=== PATIENT | male | born 1950 | race Caucasian/White ===

== ENCOUNTER 2021-03-29 20:10 | Inpatient (IN) | payer MEDICARE ==
[~2021-03-29 20:10] MED LIST: TIROFIBAN 12.5MG-250ML NS 250 ML IV ONE
[2021-03-29] MEDS ORDERED: HEPARIN SODIUM 1,000 UN/ML (10ML VL) IV PRN (20:17)
[2021-03-29] MEDS ORDERED: HEPARIN SODIUM 1,000 UN/ML (10ML VL) IV ONE (20:17)
[2021-03-29] MEDS ORDERED: SODIUM CHLORIDE 0.9% 1,000 ML IV STA (20:17)
--- NOTE | 2021-03-29 20:20 | ED ---
General Adult HPI - General Stated complaint: Chest Pain Time Seen by Provider: 03/29/21 20:13 - History of Present Illness Initial comments: Dictation was produced using [employer] dictation software. please excuse any grammatical, word or spelling errors. Chief Complaint: 70-year-old male past medical history of hypertension presents to the emergency department for chest pain History of Present Illness: Patient is a 70-year-old male who presents to the emergency department for chest pain. His symptoms began 1 hour prior to arrival states it was a pressure. Is nonradiating but associated with diaphoresis. Patient denies any history of cardiac disease. Patient states that the pain does not heat to his back. States it's a pressure on his anterior chest. Patient denies any family history of cardiac disease. Patient has no history of smoking or tobacco use. He was given nitroglycerin by EMS. States that his pressure improved slightly. He still having some substernal chest pressure. Denies any paresthesias. The ROS documented in this emergency department record has been reviewed and confirmed by me. Those systems with pertinent positive or negative responses have been documented in the HPI. All other systems are other negative and/or noncontributory. PHYSICAL EXAM: General Impression: Alert and oriented x3, diaphoretic HEENT: Normocephalic atraumatic, extra-ocular movements intact, pupils equal and reactive to light bilaterally, mucous membranes moist. Cardiovascular: Heart regular rate and rhythm Chest: Able to complete full sentences, no retractions, no tachypnea Abdomen: abdomen soft, non-tender, non-distended, no organomegaly Musculoskeletal: Pulses present and equal in all extremities, no peripheral edema Motor: no focal deficits noted Neurological: CN II-XII grossly intact, no focal motor or sensory deficits noted Skin: Intact with no visualized rashes Psych: Normal affect and mood ED course: 70-year-old male presents to the emergency department for symptoms of acute coronary syndrome. EMS provided patient with nitroglycerin and aspirin. He was brought to emergency department as a priority 1. EKG performed at the bedside showed acute ST segment elevation MN with ST elevations in anterior precordial leads. There does not appear to be any reciprocal changes. Patient started on heparin. Vital signs upon arrival are within acceptable limits. Code STEMI was paged. Case discussed Dr. Avalos. Patient be admitted to [facility] who is [facility] call today. Disposition disposition to laboratory secretary for emergent cardiac catherization EKG interpretation: Ventricular rate 61, sinus rhythm, VA interval 252, QRS 70, QTC 408. No VA prolongation, no QTC prolongation, ST elevations in V2 through V5. Consistent with ST segment elevation MN - Related Data Home Medications Medication Instructions Recorded Confirmed Losartan/Hydrochlorothiazide 1 tab PO DAILY 03/29/21 03/29/21 [Losartan-Hctz 100-25 mg Tab] Allergies Allergy/AdvReac Type Severity Reaction Status Date / Time cephalexin [From Keflex] Allergy Rash/Hives Verified 03/29/21 20:29 Review of Systems ROS Statement: Those systems with pertinent positive or pertinent negative responses have been documented in the HPI. ROS Other: All systems not noted in ROS Statement are negative. Course Vital Signs 03/29/21 20:12 Temperature 98.2 F Pulse Rate 60 Respiratory 22 Rate Blood Pressure 118/69 O2 Sat by Pulse 94 L Oximetry Medical Decision Making - Lab Data Result diagrams: 03/29/21 20:23 03/29/21 20:23 Lab Results 03/29/21 03/29/21 03/29/21 Range/Units 20:23 20:23 20:23 WBC 9.4 (3.8-10.6) k/uL RBC 5.13 (4.30-5.90) m/uL Hgb 14.5 (13.0-17.5) gm/dL Hct 42.6 (39.0-53.0) % MCV 83.0 (80.0-100.0) fL MCH 28.2 (25.0-35.0) pg MCHC 34.0 (31.0-37.0) g/dL RDW 13.5 (11.5-15.5) % Plt Count 297 (150-450) k/uL MPV 6.6 Neutrophils % 64 % Lymphocytes % 21 % Monocytes % 10 % Eosinophils % 2 % Basophils % 1 % Neutrophils # 6.0 (1.3-7.7) k/uL Lymphocytes # 2.0 (1.0-4.8) k/uL Monocytes # 0.9 (0-1.0) k/uL Eosinophils # 0.2 (0-0.7) k/uL Basophils # 0.1 (0-0.2) k/uL PT 10.6 (9.0-12.0) sec INR 1.0 (<1.2) APTT 23.7 (22.0-30.0) sec Sodium 133 L (137-145) mmol/L Potassium 3.6 (3.5-5.1) mmol/L Chloride 99 (98-107) mmol/L Carbon Dioxide 27 (22-30) mmol/L Anion Gap 7 mmol/L BUN 20 (9-20) mg/dL Creatinine 1.20 (0.66-1.25) mg/dL Est GFR (CKD-EPI)AfAm 71 (>60 ml/min/1.73 sqM) Est GFR (CKD-EPI)NonAf 61 (>60 ml/min/1.73 sqM) Glucose 168 H (74-99) mg/dL Calcium 8.9 (8.4-10.2) mg/dL Magnesium 2.0 (1.6-2.3) mg/dL Total Bilirubin 0.6 (0.2-1.3) mg/dL AST 19 (17-59) U/L ALT 17 (4-49) U/L Alkaline Phosphatase 128 H (38-126) U/L Troponin I (0.000-0.034) ng/mL Total Protein 6.9 (6.3-8.2) g/dL Albumin 3.7 (3.5-5.0) g/dL 03/29/21 Range/Units 20:23 WBC (3.8-10.6) k/uL RBC (4.30-5.90) m/uL Hgb (13.0-17.5) gm/dL Hct (39.0-53.0) % MCV (80.0-100.0) fL MCH (25.0-35.0) pg MCHC (31.0-37.0) g/dL RDW (11.5-15.5) % Plt Count (150-450) k/uL MPV Neutrophils % % Lymphocytes % % Monocytes % % Eosinophils % % Basophils % % Neutrophils # (1.3-7.7) k/uL Lymphocytes # (1.0-4.8) k/uL Monocytes # (0-1.0) k/uL Eosinophils # (0-0.7) k/uL Basophils # (0-0.2) k/uL PT (9.0-12.0) sec INR (<1.2) APTT (22.0-30.0) sec Sodium (137-145) mmol/L Potassium (3.5-5.1) mmol/L Chloride (98-107) mmol/L Carbon Dioxide (22-30) mmol/L Anion Gap mmol/L BUN (9-20) mg/dL Creatinine (0.66-1.25) mg/dL Est GFR (CKD-EPI)AfAm (>60 ml/min/1.73 sqM) Est GFR (CKD-EPI)NonAf (>60 ml/min/1.73 sqM) Glucose (74-99) mg/dL Calcium (8.4-10.2) mg/dL Magnesium (1.6-2.3) mg/dL Total Bilirubin (0.2-1.3) mg/dL AST (17-59) U/L ALT (4-49) U/L Alkaline Phosphatase (38-126) U/L Troponin I <0.012 (0.000-0.034) ng/mL Total Protein (6.3-8.2) g/dL Albumin (3.5-5.0) g/dL Critical Care Time Critical Care Time: Yes Disposition Clinical Impression: STEMI (ST elevation myocardial infarction) Disposition: ADMITTED IP TO THIS [facility] Condition: Critical
[2021-03-29] MEDS ORDERED: NALOXONE 0.4 MG/ML 1 ML VIAL IV PRN (20:27)
[2021-03-29 20:34] LABS: Basophils # (A) 0.1 k/uL (0-0.2); Basophils % (A) 1 %; Eosinophils # (A) 0.2 k/uL (0-0.7); Eosinophils % (A) 2 %; HCT 42.6 % (39.0-53.0); HGB 14.5 gm/dL (13.0-17.5); Lymphocytes % (A) 21 %; MCH 28.2 pg (25.0-35.0); Mean Platelet Volume 6.6; Monocytes # (A) 0.9 k/uL (0-1.0); Monocytes % (A) 10 %; Neutrophils % (A) 64 %; Platelet Count 297 k/uL (150-450); RBC 5.13 m/uL (4.30-5.90); RDW 13.5 % (11.5-15.5); WBC 9.4 k/uL (3.8-10.6)
--- NOTE | 2021-03-29 20:34 | XR ---
EXAMINATION TYPE: XR chest 1V portable DATE OF EXAM: 03/29/2021 COMPARISON: NONE HISTORY: Wrist pain TECHNIQUE: Single view FINDINGS: Heart is enlarged. There is no gross heart failure. There is coarsening of the interstitial markings. Costophrenic angles are clear. IMPRESSION: Cardiomegaly. No obvious heart failure.
[2021-03-29 20:42] LABS: Partial Thromboplastin Time 23.7 sec (22.0-30.0); Prothrombin Time 10.6 sec (9.0-12.0)
[2021-03-29] MEDS ORDERED: LIDOCAINE 1% INJ 10MG/ML (20 ML MDV) ONE (20:45)
[2021-03-29] MEDS ORDERED: VERAPAMIL 2.5 MG/ML 2 ML AMP ONE (20:45)
[2021-03-29] MEDS ORDERED: HEPARIN SODIUM 1,000 UN/ML (10ML VL) ONE (20:48)
[2021-03-29 20:49] LABS: Albumin 3.7 g/dL (3.5-5.0); Calcium 8.9 mg/dL (8.4-10.2); Potassium 3.6 mmol/L (3.5-5.1); Total Bilirubin 0.6 mg/dL (0.2-1.3); Total Protein 6.9 g/dL (6.3-8.2)
[2021-03-29] MEDS ORDERED: ATORVASTATIN 80 MG TAB PO STA (20:50)
--- NOTE | 2021-03-29 21:00 | P.CRDCN ---
History of Present Illness History of present illness: This is Dr. Avalos dictating a consult on this patient The patient was interviewed and examined IMPRESSION / ASSESSMENT: Acute anterior wall VA with Q waves in the anterior precordial leads Ongoing chest discomfort that started about an hour for he arrived in the ER Hypertension Morbid obesity States that he is nondiabetic, no prior history of VA Admission glucose 168 PLAN: Patient already received 2 baby aspirins and IV heparin Start atorvastatin 80 mg Urgent coronary angiography and intervention Discussed with Dr. Wily ROWELL This is a 70-year-old male patient of Dr. Fred Mcmahon He was working on the house and he started experiencing discomfort in the middle to the right side of the chest. He took 2 baby aspirins of the pain persisted and therefore he came to the hospital NICU in here the EKG revealed ST elevation in the precordial leads with Q waves V1 through V3 Mildly prolonged TN interval He also complained of being very sweaty and a bit nauseous Denied dizziness loss of consciousness or any undue shortness of breath He takes an losartan and hydrochlorothiazide 100/25 mg by mouth daily ROS: No fever chills or rigors, no cough, phlegm or expectoration, no nausea, vomiting or diarrhea, no hematuria, dysuria, no musculoskeletal complaints, no strokes or seizures, no skin lesions. EXAMINATION: Afebrile 98.2F, pulse rate in the 60s normal respirations Blood pressure 118/69 mmHg Heart sounds are extremely soft He is morbid obesity BMI 60 Reduced breath sounds bilaterally but no rhonchi no crackles Soft abdomen Bilateral lower extremity swelling, brawny edema with redness collections No orthopnea REVIEW OF LABS, ECG & MEDICAL DATA White count 9.4, hemoglobin 14.5, platelet count 297,000 Sodium 133 potassium 3.6 BUN 20 creatinine 1.2 Glucose elevated 168 Past Medical History Past Surgical History: Tonsillectomy Smoking Status: Never smoker Past Alcohol Use History: None Reported Past Drug Use History: None Reported Medications and Allergies Home Medications Medication Instructions Recorded Confirmed Type Losartan/Hydrochlorothiazide 1 tab PO DAILY 03/29/21 03/29/21 History [Losartan-Hctz 100-25 mg Tab] Allergies Allergy/AdvReac Type Severity Reaction Status Date / Time cephalexin [From Keflex] Allergy Rash/Hives Verified 03/29/21 20:29 Physical Exam Vitals: Vital Signs Temp Pulse Resp BP Pulse Ox 03/29/21 20:12 98.2 F 60 22 118/69 94 L Intake and Output 03/29/21 03/29/21 03/29/21 06:59 14:59 22:59 Other: Weight 185.066 kg Results 03/29/21 20:23 03/29/21 20:23 Cardiac Enzymes 03/29/21 03/29/21 Range/Units 20:23 20:23 AST 19 (17-59) U/L Troponin I <0.012 (0.000-0.034) ng/mL Coagulation 03/29/21 Range/Units 20:23 PT 10.6 (9.0-12.0) sec APTT 23.7 (22.0-30.0) sec CBC 03/29/21 Range/Units 20:23 WBC 9.4 (3.8-10.6) k/uL RBC 5.13 (4.30-5.90) m/uL Hgb 14.5 (13.0-17.5) gm/dL Hct 42.6 (39.0-53.0) % Plt Count 297 (150-450) k/uL Comprehensive Metabolic Panel 03/29/21 Range/Units 20:23 Sodium 133 L (137-145) mmol/L Potassium 3.6 (3.5-5.1) mmol/L Chloride 99 (98-107) mmol/L Carbon Dioxide 27 (22-30) mmol/L BUN 20 (9-20) mg/dL Creatinine 1.20 (0.66-1.25) mg/dL Glucose 168 H (74-99) mg/dL Calcium 8.9 (8.4-10.2) mg/dL AST 19 (17-59) U/L ALT 17 (4-49) U/L Alkaline Phosphatase 128 H (38-126) U/L Total Protein 6.9 (6.3-8.2) g/dL Albumin 3.7 (3.5-5.0) g/dL Current Medications Generic Name Dose Route Start Last Admin Trade Name Freq PRN Reason Stop Dose Admin Heparin Sodium (Porcine) 0 unit 03/29/21 20:17 Heparin Sodium 1,000 Un/Ml (10ml Vl) IV Q6HR PRN Low PTT Protocol Sodium Chloride 1,000 mls @ 999 mls/hr 03/29/21 20:17 03/29/21 20:27 Saline 0.9% IV 03/29/21 21:17 999 mls/hr .Q1H1M STA Administration Sodium Chloride 1,000 mls @ 20 mls/hr 03/29/21 20:30 Saline 0.9% IV .Q24H ROSALVA Naloxone HCl 0.2 mg 03/29/21 20:27 Naloxone 0.4 Mg/Ml 1 Ml Vial IV Q2M PRN Opioid Reversal Intake and Output 03/29/21 03/29/21 03/29/21 06:59 14:59 22:59 Other: Weight 185.066 kg Patient Weight 03/30/21 06:59 Weight 185.066 kg 03/29/21 20:23 03/29/21 20:23
[2021-03-29] MEDS ORDERED: IV FLUID CONTINUATION 1,000 ML IV ONE (21:10)
[2021-03-29] MEDS ORDERED: LIDOCAINE 1% INJ 10MG/ML (20 ML MDV) SQ ONE (21:13)
[2021-03-29] MEDS ORDERED: MIDAZOLAM 2 MG/2 ML VIAL IV ONE (21:13)
[2021-03-29] MEDS ORDERED: VERAPAMIL SYRINGE (5 MG/10 ML) INTRAARTER ONE (21:14)
[2021-03-29] MEDS: HEPARIN SODIUM 1,000 UN/ML (10ML VL) IV ONE ×3 (21:24→22:02)
[2021-03-29] MEDS ORDERED: TIROFIBAN BOLUS 12.5MG/250 ML BAG IV ONE (21:25)
[2021-03-29] MEDS ORDERED: IOPAMIDOL-370 100ML BTL INJ ONE (21:46)
[2021-03-29] MEDS ORDERED: IOPAMIDOL-370 50ML BTL INJ ONE ×2 (21:48→22:03)
[2021-03-29] MEDS ORDERED: LIDOCAINE 2% SYG (PF) 100 MG/5 ML IV ONE (21:53)
[2021-03-29] MEDS ORDERED: CLOPIDOGREL 75 MG TAB ONE (21:54)
[2021-03-29] MEDS ORDERED: RX INFO: IV CONTRAST WAS GIVEN 1 EACH MISC MISCELLANE PRN (22:08)
[2021-03-29] MEDS ORDERED: ZOLPIDEM 5 MG TAB PO PRN (22:08)
[2021-03-29] MEDS ORDERED: NITROGLYCERIN SL TABS 0.4 MG TAB SUBLINGUAL PRN (22:08)
[2021-03-29] MEDS ORDERED: ATROPINE SULFATE 0.1 MG/ML 10ML SYRINGE IV PRN (22:08)
[2021-03-29] MEDS ORDERED: MAG HYDROX/AL HYDROX/SIMETH 30 ML CUP PO PRN (22:08)
[2021-03-29] MEDS ORDERED: CLOPIDOGREL 75 MG TAB PO ONE (22:09)
[2021-03-29 22:44] LABS: Glucose,Whole Blood 140 mg/dL (75-99)
[2021-03-29] MEDS: SODIUM CHLORIDE 0.9% 1,000 ML IV SCH ×2 (23:30→23:32)
[2021-03-30] MEDS ORDERED: TIROFIBAN 12.5MG-250ML NS 250 ML IV SCH (05:00)
[2021-03-30 07:04] LABS: Basophils % (A) 0 %; Eosinophils # (A) 0.1 k/uL (0-0.7); Eosinophils % (A) 1 %; HCT 40.6 % (39.0-53.0); HGB 13.8 gm/dL (13.0-17.5); Lymphocytes # (A) 0.9 k/uL (1.0-4.8); Lymphocytes % (A) 9 %; MCHC 34.1 g/dL (31.0-37.0); MCV 85.1 fL (80.0-100.0); Mean Platelet Volume 6.8; Monocytes # (A) 0.6 k/uL (0-1.0); Monocytes % (A) 6 %; Neutrophils # (A) 8.2 k/uL (1.3-7.7); Neutrophils % (A) 82 %; Platelet Count 272 k/uL (150-450); RBC 4.76 m/uL (4.30-5.90); RDW 14.1 % (11.5-15.5)
[2021-03-30 07:23] LABS: African American GFR (CKD) >90 (>60 ml/min/1.73 sqM); Anion Gap 9 mmol/L; Blood Urea Nitrogen 18 mg/dL (9-20); Calcium 8.4 mg/dL (8.4-10.2); Carbon Dioxide 20 mmol/L (22-30); Chloride 104 mmol/L (98-107); Glucose 121 mg/dL (74-99); Non-African American GFR(CKD) 79 (>60 ml/min/1.73 sqM); Sodium 133 mmol/L (137-145)
[2021-03-30 07:25] LABS: Potassium 4.2 mmol/L (3.5-5.1)
--- NOTE | 2021-03-30 07:46 | CC ---
CARDIAC CATHETERIZATION REPORT DATE OF SERVICE: 03/29/2021 PROCEDURE: 1. Left heart catheterization and coronary angiography. 2. PTCA and stenting of mid LAD with a drug-eluting stent in the setting of an acute ST-elevation OH with reperfusion accomplished within 81 minute. Moderate conscious sedation time was 45 minutes. Patient was administered Versed. Oxygen saturation, hemodynamics and EKG were monitored closely. PERFORMED BY: Dr. Fatou Julien. CLINICAL INFORMATION: Mr. Sundar Rutherford is a 70-year-old morbidly obese gentleman with history of hypertension, obstructive sleep apnea, who wears a CPAP. He came into the hospital with chest pain, was seen by Dr. Avalos in the emergency room. His clinical presentation was that of an acute OH with precordial ST elevation and persistent chest discomfort. He was advised prompt cardiac catheterization after due discussion regarding risks, benefits, and options. PROCEDURE NOTE: Under local anesthesia and strict aseptic precautions, a 6-Macedonian introducer was placed in the right radial artery. Using a JR4 diagnostic catheter, I performed selective coronary angiography of the right system. I checked the LV pressures with the same catheter but did not perform the LV-gram. I then switched over to a left 3.5 curved Heather catheter which was a guide catheter and with this I performed intervention of the mid LAD lesion. Following this, I took the sheath out and used an extra long TR band to secure hemostasis with the saturation the fingers of the right hand of about 96%. The patient tolerated procedure well without complication. [place] [address] units and ACT was 188. Additional 2000 units of heparin was given. He also received Aggrastat bolus and infusion. He received 600 mg of Plavix. He was sent to the ICU in a stable condition and results were discussed with the family members available. CARDIAC CATHETERIZATION FINDINGS: RIGHT CORONARY ARTERY: Dominant vessel, moderate calcification distally bifurcates into a large PDA and PLV, both of which supply a sizable amount of myocardium. Minor irregularities of 20-40 percent. No significant disease. LEFT MAIN CORONARY ARTERY: Short patent disease-free vessel that bifurcates into LAD and circumflex. LEFT ANTERIOR DESCENDING CORONARY ARTERY: This vessel gives off a diagonal and small septal branches and in the midportion there is a subtotal occlusion with heavy thrombus burden seen as a filling defect and without much antegrade flow. LAD occlusion with thrombus is the culprit vessel. LEFT POSTERIOR CIRCUMFLEX CORONARY ARTERY: Nondominant vessel that gives off 2 obtuse marginal branches and then runs in the AV groove. No significant disease. LV pressures were checked but LV gram was not performed. IMPRESSION: 1. Left ventricular end-diastolic pressure was about 20 mmHg. There was no gradient across aortic valve. 2. He has a right dominant system with no significant disease in the RCA other than 20- 30, minor irregularities. 3. Left main and circumflex, which is nondominant, are free of significant disease. 4. LAD has a 99% mid lesion with thrombus burden and filling defect without much antegrade flow. This is the culprit vessel. RECOMMENDATIONS: I recommended PCI of LAD and proceeded to perform this in the same setting. PCI PROCEDURE DETAILS: JL 3.5 guide catheter was used to cannulate the left coronary artery. A run-through wire was used to cross the lesion. A 3.0 caliber 12 mm NC Trek balloon was used to pre- dilate the lesion. I then deployed 18 mm long 4.0 caliber Xience stent at 14 atmospheres. Patient had chest pain and precordial ST elevation. Excellent angiographic result was achieved. Distally the vessel was occluded towards the apex and the ST-segment elevation still persisted, although there was modest relief of chest pain. I then advanced the same wire distally and gave a dilatation at the site of total occlusion with a 3.0 NC Trek balloon. Following this, the entire vessel opened up with AGUSTINA-3 flow. Patient had resolution of chest pain and EKG normalized. Excellent angiographic result was achieved. There was no evident complication. At the end of the procedure, I noted that in the distal 1/3 there was some diffuse disease and there was a focal area of about 40% to 50% narrowing, but I did not do any additional intervention other than balloon inflation of this site. Excellent angiographic result without complication was achieved and patient was sent to the room in stable condition. Reperfusion was accomplished in 81 minutes and patient tolerated procedure well. MMODL / IJN: [id number] /
[2021-03-30] MEDS: ASPIRIN 81 MG PO SCH (08:57)
[2021-03-30] MEDS: ATORVASTATIN 80 MG TAB PO SCH (08:57)
[2021-03-30] MEDS ORDERED: LOSARTAN 50 MG TAB PO SCH ×2 (09:00→21:00)
[2021-03-30] MEDS ORDERED: TICAGRELOR 90 MG TAB PO SCH (09:00)
[2021-03-30] MEDS ORDERED: METOPROLOL TARTRATE 25 MG TAB PO SCH (09:00)
[2021-03-30] MEDS ORDERED: CLOPIDOGREL 75 MG TAB PO SCH (09:00)
[2021-03-30 10:44] VITALS: BMI 60.5
--- NOTE | 2021-03-30 11:38 | ECHOF ---
Referral Reason:Anterior wall TX MEASUREMENTS -------- HEIGHT: 175.3 cm WEIGHT: 186.0 kg BP: IVSd: 1.3 cm (0.6 - 1.1) LVIDd: 4.9 cm (3.9 - 5.3) LVPWd: 1.4 cm (0.6 - 1.1) IVSs: 1.6 cm LVIDs: 3.5 cm LVPWs: 1.4 cm Ao Diam: 4.0 cm (2.0 - 3.7) AV Cusp: 2.0 cm (1.5 - 2.6) LA Diam: 4.7 cm (2.7 - 3.8) MV EXCURSION: 23.688 mm (> 18.000) MV EF SLOPE: 173 mm/s (70 - 150) EPSS: 0.9 cm FINDINGS -------- Sinus rhythm. Morbid Obesity This was a techncally difficult study with suboptimal views, , Definity utilized for enhancement of images. There is mild concentric left ventricular hypertrophy. Overall left ventricular systolic function i s moderately impaired with, an EF between 35 - 40 %. Apical anterior LV wall motion is hypokinetic. Apical lateral LV wall motion is hypokinetic. Apical inferior LV wall motion is hypokinetic. Apical septum LV wall motion is hypokinetic. The right ventricle is normal in size. The left atrial size is normal. The right atrial size is normal. xx ml of Lumason was utilized for enhancement of images. The aortic valve was not well visualized. The mitral valve was not well visualized. The tricuspid valve was not well visualized. Unable to estimate RVSP due to inadequate TR jet spect ral doppler profile. The pulmonic valve was not well visualized. The aortic root size is normal. Echo free space indicative of a pericardial fat pad. CONCLUSIONS -------- 1. Morbid Obesity 2. This was a techncally difficult study with suboptimal views, , Definity utilized for enhancement o f images. 3. There is mild concentric left ventricular hypertrophy. 4. Apical anterior LV wall motion is hypokinetic. 5. The right ventricle is normal in size. 6. The left atrial size is normal. 7. The right atrial size is normal. 8. xx ml of Lumason was utilized for enhancement of images. 9. The aortic valve was not well visualized. 10. The mitral valve was not well visualized. 11. The tricuspid valve was not well visualized. 12. Unable to estimate RVSP due to inadequate TR jet spectral doppler profile. 13. The pulmonic valve was not well visualized. 14. The aortic root size is normal. 15. Echo free space indicative of a pericardial fat pad. THERAPY TECHNICIAN: Tori Eddy RDCS
[2021-03-30] MEDS: SODIUM CHLORIDE 0.9% 1,000 ML IV SCH (11:52)
--- NOTE | 2021-03-30 12:47 | P.PN ---
Subjective Patient is doing well from a cardiac standpoint. He was admitted with chest discomfort with ST elevation anterior wall WI He underwent coronary angiography. The radial access site is healed well Breath sounds are clear no rhonchi no crackles Normal heart sounds normal S1 normal S2 but distant Lower extremity edema with some redness as yesterday No chest discomfort at all doing very well Blood pressure 155/86 and 141/82, pulse rate in the 60s to respirations, afebrile Sodium 133 potassium 4.2 BUN 18 and creatinine 0.97 Impression [address] An[address] ST elevation [place], with Q waves in the anterior precordial leads Hypertension Morbid obesity Ischemic cardio myopathy left ventricular ejection fraction 35% Cardiac catheterization/Coronary angiography revealed LV EDP of about 20 mmHg without a gradient across the aortic valve Right dominant system with mild RCA disease of 20-30% Left main and left circumflex do not have any significant disease 99% mid LAD stenosis with a high thrombus burden Status post stenting to the mid LAD There was a distal LAD lesion which was also angioplastied without stenting Aggrastat infusion was given Reduced LV systolic function of 35-40% with anterior wall hypokinesis Plan Dual antiplatelet platelet therapy with aspirin and Brilinta Atorvastatin Switched to carvedilol 3.125 mg twice daily Stay with losartan to 50 mg once daily for blood pressure control Stop thiazide diuretics Start spironolactone 25 mg daily Objective - Vital Signs Vital signs: Vital Signs Temp 97.4 F L 03/30/21 08:00 Pulse 64 03/30/21 12:00 Resp 16 03/30/21 12:00 BP 155/86 03/30/21 12:00 Pulse Ox 94 L 03/30/21 12:00 Intake & Output 03/29/21 03/30/21 03/30/21 18:59 06:59 18:59 Intake Total 953 925 Output Total 425 375 Balance 528 550 Weight 186 kg 186 kg Intake: IV 388 Intake, IV Titration 565 375 Amount Sodium Chloride 0.9% 1, 40 000 ml @ 20 mls/hr IV . Q24H ROSALVA Rx#:[id number] Sodium Chloride 0.9% 1, 525 375 000 ml @ 75 mls/hr IV . [id number] ROSALVA Rx#:[id number] Oral 550 Output: Urine 425 375 Other: Voiding Method Urinal Urinal # Voids 1 - Labs CBC & Chem 7: 03/30/21 05:33 11/27/21 05:33 Labs: Abnormal Lab Results - Last 24 Hours (Table) 03/29/21 03/29/21 03/29/21 Range/Units 20:23 22:42 22:44 Neutrophils # (1.3-7.7) k/uL Lymphocytes # (1.0-4.8) k/uL Sodium 133 L (137-145) mmol/L Carbon Dioxide (22-30) mmol/L Glucose 168 H (74-99) mg/dL POC Glucose (mg/dL) 140 H (75-99) mg/dL Alkaline Phosphatase 128 H (38-126) U/L Troponin I 0.386 H* (0.000-0.034) ng/mL 03/30/21 03/30/21 Range/Units 05:33 05:33 Neutrophils # 8.2 H (1.3-7.7) k/uL Lymphocytes # 0.9 L (1.0-4.8) k/uL Sodium 133 L (137-145) mmol/L Carbon Dioxide 20 L (22-30) mmol/L Glucose 121 H (74-99) mg/dL POC Glucose (mg/dL) (75-99) mg/dL Alkaline Phosphatase (38-126) U/L Troponin I (0.000-0.034) ng/mL
--- NOTE | 2021-03-30 12:58 | P.PN ---
Subjective Patient remains intubated Heart rates during atrial fibrillation are now ranging from 9210 She was on low-dose IV Cardizem drip which was discontinued this morning Yesterday we had increased the metoprolol dose to 115 g twice daily We will continue this dose for now Present may be used off and on in very low-dose infusion rates if needed when heart rates exceed 120 beats a minute This was discussed with the nurse Objective - Vital Signs Vital signs: Vital Signs Temp 97.4 F L 03/30/21 08:00 Pulse 64 03/30/21 12:00 Resp 16 03/30/21 12:00 BP 155/86 03/30/21 12:00 Pulse Ox 94 L 03/30/21 12:00 Intake & Output 03/29/21 03/30/21 03/30/21 18:59 06:59 18:59 Intake Total 953 925 Output Total 425 375 Balance 528 550 Weight 186 kg 186 kg Intake: IV 388 Intake, IV Titration 565 375 Amount Sodium Chloride 0.9% 1, 40 000 ml @ 20 mls/hr IV . Q24H ROSALVA Rx#:[id number] Sodium Chloride 0.9% 1, 525 375 000 ml @ 75 mls/hr IV . [id number] ROSALVA Rx#:[id number] Oral 550 Output: Urine 425 375 Other: Voiding Method Urinal Urinal # Voids 1 - Labs CBC & Chem 7: 03/30/21 05:33 03/30/21 05:33 Labs: Abnormal Lab Results - Last 24 Hours (Table) 03/29/21 03/29/21 03/29/21 Range/Units 20:23 22:42 22:44 Neutrophils # (1.3-7.7) k/uL Lymphocytes # (1.0-4.8) k/uL Sodium 133 L (137-145) mmol/L Carbon Dioxide (22-30) mmol/L Glucose 168 H (74-99) mg/dL POC Glucose (mg/dL) 140 H (75-99) mg/dL Alkaline Phosphatase 128 H (38-126) U/L Troponin I 0.386 H* (0.000-0.034) ng/mL 03/30/21 03/30/21 Range/Units 05:33 05:33 Neutrophils # 8.2 H (1.3-7.7) k/uL Lymphocytes # 0.9 L (1.0-4.8) k/uL Sodium 133 L (137-145) mmol/L Carbon Dioxide 20 L (22-30) mmol/L Glucose 121 H (74-99) mg/dL POC Glucose (mg/dL) (75-99) mg/dL Alkaline Phosphatase (38-126) U/L Troponin I (0.000-0.034) ng/mL
--- NOTE | 2021-03-30 13:02 | P.HPIM ---
History of Present Illness H&P Date: 03/30/21 70 years male patient of Dr. Mcmahon with past medical history of hypertension, morbid obesity comes in with acute onset of chest discomfort when he came inside his house. Patient states pain was central in location and nonradiating associated with excessive sweating and nausea. He called EMS within 15 minutes and was brought here. In the ER patient was noted to have diffuse ST elevation in the precordial lead with Q waves. STEMI alert was made and patient was taken to cardiac cath and stenting of the mid LAD with drug- eluting stent was done with an 81 minutes. Patient was noted to have an thrombus burden and filling defect in the LAD. Echocardiogram obtained this morning suggestive of mild concentric left ventricle hypertrophy and EF of 35- 0.40% apical anterior, lateral, inferior, septum left ventricle wall motion hypokinetic. Vitals are reviewed patient is afebrile pulse 64 respiratory rate 16 blood pressure 155/86 oxygenating 94% on room air. Labs are reviewed patient has a WBC count of 10 sodium 133 potassium 4.2 BUN 18 creatinine 0.97. Troponin negative second troponin 0.386. Twice a day, Plavix 75 mg by mouth daily, losartan 50 mg by mouth daily and spironolactone . Patient will be placed on aspirin and brillanta for anticoagulation. ROS Constitutional: Denies chills, Denies fever, Denies lethargy, Denies malaise, Denies poor appetite, Denies weakness, Denies weight loss Eyes: denies decreased vision, denies diplopia, denies discharge, denies pain Ears: deny: decreased hearing Ears, nose, mouth and throat: Denies dental pain, Denies headache, Denies nasal discharge, Denies nose pain Cardiovascular: Chest pain resolved, Denies decreased exercise tolerance, Denies edema, Denies high blood pressure, Denies irregular heart beat, Denies palpit ations, Denies paroxysmal nocturnal dyspnea, Denies rapid heart beat, Denies shortness of breath Respiratory: Denies congestion, Denies cough, Denies cough with sputum, Denies dyspnea, Denies home oxygen, Denies wheezing Gastrointestinal: Denies abdominal pain, Denies change in bowel habits, Denies coffee ground emesis, Denies early satiety, Denies excessive gas, Denies heartburn, Denies hematemesis, Denies hematochezia, Denies loss of appetite, Denies nausea, Denies vomiting Genitourinary: Denies dysuria, Denies flank pain, Denies kidney stones, Denies menorrhagia, Denies urgency, Denies urinary frequency Musculoskeletal: Denies gait dysfunction, Denies limitation of motion, Denies morning stiffness, Denies muscle cramps Integumentary: Denies rash, Denies wounds, Denies brittle nails, Denies change in hair/nails, Denies darkening of skin Neurological: Denies balance difficulties, Denies change in speech, Denies double vision, Denies gait dysfunction, Denies loss of vision, Denies motor disturbance, Denies numbness, Denies paralysis, Denies paresthesias, Denies seizures Psychiatric: Denies anxiety, Denies depression Endocrine: Denies excessive sweating, Denies excessive thirst, Denies high blood sugars, Denies palpitations Hematologic/Lymphatic: Denies easy bruising, Denies lymphadenopathy Social history Patient is Denies any smoking history or alcohol history, no illicit drug use Family history Father had coronary artery disease of prostate cancer at 68 Mother had coronary artery disease at 85 patient has 1 brother and 3 sisters no significant medical history known Patient has 1 son who is overweight no medical problems Physical exam - Constitutional General appearance: cooperative, no acute distress, obese - EENT Eyes: anicteric sclerae, PERRLA, normal appearance ENT: hearing grossly normal - Neck Neck: no lymphadenopathy, normal ROM, no other, no rigidity, no stridor, no thyromegaly - Respiratory Respiratory: bilateral: CTA, negative: diminished, dullness, rales, rhonchi - Cardiovascular Rhythm: regular Heart sounds: normal: S1, S2 Abnormal Heart Sounds: no systolic murmur, no diastolic murmur, no rub, no S3 Gallop, no S4 Gallop, no click, no other - Gastrointestinal General gastrointestinal: normal bowel sounds, soft - Integumentary Integumentary: no rash, site of entry without any thrombus formation right wrist cardiac cath - Neurologic Neurologic: CNII-XII intact - Musculoskeletal Musculoskeletal: gait normal, strength equal bilaterally - Psychiatric Psychiatric: A&O x's 3, appropriate affect Assessment and plan STEMI status post drug-eluting stenting of mid LAD on 03/29 - On aspirin and Brillanta 90 mg twice a day - Coreg 3.125 mg twice a day - Losartan 50 mg by mouth daily - Aldactone 25 mg by mouth daily - Lipitor 80 mg by mouth daily - Lipid panel ordered Hypertension - Hold hydrochlorothiazide/lisinopril -Patient initiated on Coreg, losartan, Aldactone - Low salt diet Ischemic cardiomyopathy - Continue Lipitor, beta matthew, Onel inhibitors, Aldactone - Input and output monitoring - Daily weights History of prostate cancer - Status post resection of prostate with radiation treatments -In remission DVT prophylaxis - Heparin every 12 GI prophylaxis - Pepcid 20 mg by mouth DD CODE STATUS full code Disposition patient needed to use 1-2 inpatient nights for stabilization More than 30 minutes was spent in patient's assessment and plan and counseling the patient Past Medical History Additional Past Medical History / Comment(s): Tonsilectomy, Obesity, Prostate sx., Carpal Tunnel sx. B/L History of Any Multi-Drug Resistant Organisms: None Reported Past Surgical History: Prostate Surgery, Tonsillectomy Past Anesthesia/Blood Transfusion Reactions: No Reported Reaction Past Psychological History: No Psychological Hx Reported Smoking Status: Never smoker Past Alcohol Use History: None Reported Past Drug Use History: None Reported Medications and Allergies Home Medications Medication Instructions Recorded Confirmed Type Losartan/Hydrochlorothiazide 1 tab PO DAILY 03/29/21 03/29/21 History [Losartan-Hctz 100-25 mg Tab] Allergies Allergy/AdvReac Type Severity Reaction Status Date / Time cephalexin [From Keflex] Allergy Rash/Hives Verified 03/29/21 20:29 Physical Exam Vitals: Vital Signs Temp Pulse Resp BP BP Pulse Ox 03/30/21 09:00 70 12 145/76 92 L 03/30/21 08:00 97.4 F L 65 12 145/77 93 L 03/30/21 07:00 76 21 113/70 92 L 03/30/21 06:00 66 11 L 136/69 93 L 03/30/21 05:00 67 8 L 131/71 93 L 03/30/21 04:00 97.6 F 64 12 122/68 94 L 03/30/21 03:00 67 14 133/98 95 03/30/21 02:30 71 18 120/72 94 L 03/30/21 02:00 62 11 L 118/75 94 L 03/30/21 01:30 64 10 L 119/73 94 L 03/30/21 01:00 61 7 L 123/71 95 11/27/21 00:30 60 13 129/73 94 L 03/30/21 00:00 98.3 F 63 8 L 125/70 94 L 03/29/21 23:30 64 13 123/76 95 03/29/21 23:10 70 8 L 123/76 94 L 03/29/21 23:00 67 9 L 119/70 95 03/29/21 22:53 18 123/76 96 03/29/21 22:50 97.5 F L 64 13 119/70 96 03/29/21 22:38 98.2 F 16 119/70 96 03/29/21 20:12 98.2 F 60 22 118/69 94 L Intake and Output 03/29/21 03/30/21 03/30/21 22:59 06:59 14:59 Intake Total 408 545 625 Output Total 0 425 125 Balance 408 120 500 Intake: IV 388 Intake, IV Titration 20 545 225 Amount Sodium Chloride 0.9% 1, 20 20 000 ml @ 20 mls/hr IV . Q24H [facility] Rx#:[id number] Sodium Chloride 0.9% 1, 525 225 000 ml @ 75 mls/hr IV . [id number] [facility] Rx#:[id number] Oral 400 Output: Urine 0 425 125 Other: Voiding Method Urinal # Voids 1 Weight 186 kg 186 kg Results CBC & Chem 7: 03/30/21 05:33 03/30/21 05:33 Labs: Abnormal Lab Results - Last 24 Hours (Table) 03/29/21 03/29/21 03/29/21 Range/Units 20:23 22:42 22:44 Neutrophils # (1.3-7.7) k/uL Lymphocytes # (1.0-4.8) k/uL Sodium 133 L (137-145) mmol/L Carbon Dioxide (22-30) mmol/L Glucose 168 H (74-99) mg/dL POC Glucose (mg/dL) 140 H (75-99) mg/dL Alkaline Phosphatase 128 H (38-126) U/L Troponin I 0.386 H* (0.000-0.034) ng/mL 03/30/21 03/30/21 Range/Units 05:33 05:33 Neutrophils # 8.2 H (1.3-7.7) k/uL Lymphocytes # 0.9 L (1.0-4.8) k/uL Sodium 133 L (137-145) mmol/L Carbon Dioxide 20 L (22-30) mmol/L Glucose 121 H (74-99) mg/dL POC Glucose (mg/dL) (75-99) mg/dL Alkaline Phosphatase (38-126) U/L Troponin I (0.000-0.034) ng/mL Thrombosis Risk Factor Assmnt - Choose All That Apply Each Factor Represents 1 point: Acute [place], Obesity (BMI >25) Each Risk Factor Represents 2 Points: Age 61-74 years Other congenital or acquired thrombophilia - If yes, enter type in comment: No Thrombosis Risk Factor Assessment Total Risk Factor Score: 4 Thrombosis Risk Factor Assessment Level: Moderate Risk
[2021-03-30] MEDS: carvediloL 3.125 MG TAB PO SCH (17:51)
[2021-03-31] MEDS: carvediloL 3.125 MG TAB PO SCH ×2 (06:17→16:44)
[2021-03-31] MEDS: SODIUM CHLORIDE 0.9% 1,000 ML IV SCH (06:17)
[2021-03-31] MEDS ORDERED: SPIRONOLACTONE 25 MG TAB PO SCH (09:00)
[2021-03-31] MEDS: ASPIRIN 81 MG PO SCH (10:12)
[2021-03-31] MEDS: ATORVASTATIN 80 MG TAB PO SCH (10:12)
[2021-03-31] MEDS: CLOPIDOGREL 75 MG TAB PO SCH (10:12)
[2021-03-31] MEDS: SPIRONOLACTONE 25 MG TAB PO SCH (10:12)
[2021-03-31 10:45] LABS: Calcium 8.3 mg/dL (8.4-10.2)
--- NOTE | 2021-03-31 11:04 | P.PN ---
Subjective Patient is resting comfortably in bed. No chest discomfort dizziness lightheadedness no palpitations On examination afebrile 98F Pulse rate in the 60s blood pressure 124/82 mmHg and 130 506 9 mmHg Normal heart sounds Breath sounds are reduced Bilaterally but no crackles crackles Bilateral mild lower extremity edema Labs reviewed Sodium 132, potassium 4.0 BUN 18 and creatinine 1.0 Lipid panel is still pending 48 hours after admission Impression Anterior wall [place] status post stenting Acute ST elevation [place] as a presentation. Peak troponin of 17.4 Ischemic cardiopathy ejection fraction 35-40% post [place] Hemodynamically stable Very occasional PVCs no nonsustained ventricular tachycardia Mode obesity Hypertension Suggest Into new dual antiplatelet therapy with aspirin and Plavix Continue carvedilol 3.125 mg twice daily. His heart rates are now in the 60s at rest Continue losartan 50 mrem by mouth daily Increase spironolactone to 50 mg by mouth daily New telemetry monitoring BMP tomorrow Likely discharge tomorrow He has LV dysfunction, Q waves in V1 through V3 I would monitor him for another 24 hours Objective - Vital Signs Vital signs: Vital Signs Temp 98.0 F 03/31/21 08:50 Pulse 67 03/31/21 08:50 Resp 18 03/31/21 08:50 BP 135/69 03/31/21 08:50 Pulse Ox 97 03/31/21 08:50 Intake & Output 03/30/21 03/31/21 03/31/21 18:59 06:59 18:59 Intake Total 1165 480 180 Output Total 375 Balance 790 480 180 Weight 186 kg Intake: Intake, IV Titration 375 Amount Sodium Chloride 0.9% 1, 375 000 ml @ 75 mls/hr IV . [id number] [facility] Rx#:[id number] Oral 790 480 180 Output: Urine 375 Other: Voiding Method Urinal Toilet Toilet Urinal Urinal # Voids 1 - Labs CBC & Chem 7: 03/30/21 05:33 03/31/21 09:54 Labs: Abnormal Lab Results - Last 24 Hours (Table) 03/30/21 03/31/21 03/31/21 Range/Units 14:04 09:54 09:54 Sodium 132 L (137-145) mmol/L Glucose 111 H (74-99) mg/dL Calcium 8.3 L (8.4-10.2) mg/dL Troponin I 17.400 H* 7.410 H* (0.000-0.034) ng/mL
[2021-03-31 11:58] LABS: Chol/HDL Ratio 4.14 Ratio; LDL Cholesterol,Calculated 90.1 mg/dL (0.0-131.0)
[2021-03-31] MEDS: LOSARTAN 50 MG TAB PO SCH (12:13)
--- NOTE | 2021-03-31 13:33 | P.PN ---
Subjective Progress Note Date: 03/31/21 70 years male patient of Dr. Mcmahon with past medical history of hypertension, morbid obesity comes in with acute onset of chest discomfort when he came inside his house. Patient states pain was central in location and nonradiating associated with excessive sweating and nausea. He called EMS within 15 minutes and was brought here. In the ER patient was noted to have diffuse ST elevation in the precordial lead with Q waves. STEMI alert was made and patient was taken to cardiac cath and stenting of the mid LAD with drug- eluting stent was done with an 81 minutes. Patient was noted to have an thrombus burden and filling defect in the LAD. Echocardiogram obtained this morning suggestive of mild concentric left ventricle hypertrophy and EF of 35- 0.40% apical anterior, lateral, inferior, septum left ventricle wall motion hypokinetic. Vitals are reviewed patient is afebrile pulse 64 respiratory rate 16 blood pressure 155/86 oxygenating 94% on room air. Labs are reviewed patient has a WBC count of 10 sodium 133 potassium 4.2 BUN 18 creatinine 0.97. Troponin negative second troponin 0.386. Twice a day, Plavix 75 mg by mouth daily, losartan 50 mg by mouth daily and spironolactone . Patient will be placed on aspirin and brillanta for anticoagulation. 03/31 patient examined at bedside is comfortable denies any chest pain shortness of breath dizziness or lightheadedness. Vitals evaluated, patient is afebrile pulse 7061 respiratory rate 18 blood pressure 127/74. Labs are reviewed patient's has a sodium 132. He had a peak troponin 17.4 which improved to 7.4 LDL 90. Continue to remain on aspirin and Plavix. Continue telemetry to look for arrhythmias. Cardiology follow-up as outpatient. Would need cardiac rehab on discharge. ROS Constitutional: Denies chills, Denies fever, Denies lethargy, Denies malaise, Denies poor appetite, Denies weakness, Denies weight loss Eyes: denies decreased vision, denies diplopia, denies discharge, denies pain Ears: deny: decreased hearing Ears, nose, mouth and throat: Denies dental pain, Denies headache, Denies nasal discharge, Denies nose pain Cardiovascular: Chest pain resolved, Denies decreased exercise tolerance, Denies edema, Denies high blood pressure, Denies irregular heart beat, Denies palpitations, Denies paroxysmal nocturnal dyspnea, Denies rapid heart beat, Denies shortness of breath Respiratory: Denies congestion, Denies cough, Denies cough with sputum, Denies dyspnea, Denies home oxygen, Denies wheezing Gastrointestinal: Denies abdominal pain, Denies change in bowel habits, Denies coffee ground emesis, Denies early satiety, Denies excessive gas, Denies heartburn, Denies hematemesis, Denies hematochezia, Denies loss of appetite, Denies nausea, Denies vomiting Genitourinary: Denies dysuria, Denies flank pain, Denies kidney stones, Denies menorrhagia, Denies urgency, Denies urinary frequency Musculoskeletal: Denies gait dysfunction, Denies limitation of motion, Denies morning stiffness, Denies muscle cramps Integumentary: Denies rash, Denies wounds, Denies brittle nails, Denies change in hair/nails, Denies darkening of skin Neurological: Denies balance difficulties, Denies change in speech, Denies double vision, Denies gait dysfunction, Denies loss of vision, Denies motor disturbance, Denies numbness, Denies paralysis, Denies paresthesias, Denies seizures Psychiatric: Denies anxiety, Denies depression Endocrine: Denies excessive sweating, Denies excessive thirst, Denies high blood sugars, Denies palpitations Hematologic/Lymphatic: Denies easy bruising, Denies lymphadenopathy Physical exam - Constitutional General appearance: cooperative, no acute distress, obese - EENT Eyes: anicteric sclerae, PERRLA, normal appearance ENT: hearing grossly normal - Neck Neck: no lymphadenopathy, normal ROM, no other, no rigidity, no stridor, no thyromegaly - Respiratory Respiratory: bilateral: CTA, negative: diminished, dullness, rales, rhonchi - Cardiovascular Rhythm: regular Heart sounds: normal: S1, S2 Abnormal Heart Sounds: no systolic murmur, no diastolic murmur, no rub, no S3 Gallop, no S4 Gallop, no click, no other - Gastrointestinal General gastrointestinal: normal bowel sounds, soft - Integumentary Integumentary: no rash, site of entry without any thrombus formation right wrist cardiac cath - Neurologic Neurologic: Sensorimotor deficit - Musculoskeletal Musculoskeletal: gait not assessed, strength equal bilaterally - Psychiatric Psychiatric: A&O x's 3, appropriate affect Assessment and plan STEMI status post drug-eluting stenting of mid LAD on 03/29 - On aspirin and Plavix - Coreg 3.125 mg twice a day - Losartan 50 mg by mouth daily - Aldactone increased to 50 mg by mouth daily - Lipitor 80 mg by mouth daily -LDL 90 Hypertension - Hold hydrochlorothiazide/lisinopril -Patient initiated on Coreg, losartan, Aldactone - Low salt diet - Aldactone increased to 50 mg by mouth daily. -Detailed discussion was done on patient's diet and exercise. Patient will benefit from cardiac rehab - Ischemic cardiomyopathy - Continue Lipitor, beta matthew, Onel inhibitors, Aldactone - Input and output monitoring - Daily weights History of prostate cancer - Status post resection of prostate with radiation treatments -In remission DVT prophylaxis - Heparin every 12 GI prophylaxis - Pepcid 20 mg by mouth CODE STATUS full code Patient Condition at Discharge: Critical Objective - Vital Signs Vital signs: Vital Signs Temp 98.0 F 03/31/21 08:50 Pulse 67 03/31/21 08:50 Resp 18 03/31/21 08:50 BP 135/69 03/31/21 08:50 Pulse Ox 97 03/31/21 08:50 Intake & Output 03/30/21 03/31/21 03/31/21 18:59 06:59 18:59 Intake Total 1165 480 180 Output Total 375 Balance 790 480 180 Weight 186 kg Intake: Intake, IV Titration 375 Amount Sodium Chloride 0.9% 1, 375 000 ml @ 75 mls/hr IV . [id number] [facility] Rx#:[id number] Oral 790 480 180 Output: Urine 375 Other: Voiding Method Urinal Toilet Urinal # Voids 1 - Labs CBC & Chem 7: 03/30/21 05:33 03/31/21 09:54 Labs: Abnormal Lab Results - Last 24 Hours (Table) 03/30/21 Range/Units 14:04 Troponin I 17.400 H* (0.000-0.034) ng/mL
[2021-04-01] MEDS: carvediloL 3.125 MG TAB PO SCH (06:30)
[2021-04-01 07:27] LABS: African American GFR (CKD) >90 (>60 ml/min/1.73 sqM); Anion Gap 8 mmol/L; Blood Urea Nitrogen 17 mg/dL (9-20); Calcium 8.2 mg/dL (8.4-10.2); Carbon Dioxide 22 mmol/L (22-30); Chloride 104 mmol/L (98-107); Glucose 91 mg/dL (74-99); Non-African American GFR(CKD) 79 (>60 ml/min/1.73 sqM); Sodium 134 mmol/L (137-145)
[2021-04-01 07:33] LABS: Potassium 4.1 mmol/L (3.5-5.1)
[2021-04-01 08:40] VITALS: RESP 18
[2021-04-01] MEDS: ASPIRIN 81 MG PO SCH (08:40)
[2021-04-01] MEDS: CLOPIDOGREL 75 MG TAB PO SCH (08:40)
[2021-04-01] MEDS: SPIRONOLACTONE 25 MG TAB PO SCH (08:40)
[2021-04-01] MEDS: ATORVASTATIN 80 MG TAB PO SCH (08:40)
--- NOTE | 2021-04-01 10:21 | P.PN ---
Subjective Progress Note Date: 04/01/21 HISTORY OF PRESENT ILLNESS: This is a 70-year-old male who presented to the hospital secondary to chest pain. Patient was found to have a STEMI. He underwent cardiac catheterization on 03/29/2021 with stenting to the LAD. Patient currently denies chest pain or pressure. He denies shortness of breath. He has been up and bleeding to the bathroom without difficulty. Echocardiogram completed revealed ejection fraction 35-40%. Vital signs are stable. PHYSICAL EXAM: VITAL SIGNS: Reviewed. GENERAL: Well-developed in no acute distress. NECK: Supple. No JVD or thyromegaly LUNGS: Respirations even and unlabored. Lungs essentially clear to auscultation bilaterally. HEART: Regular rate and rhythm. S1 and S2 heard. EXTREMITIES: Normal range of motion. No clubbing or cyanosis. Peripheral pulses intact. No lower extremity edema. Patient's right wrist with pulse present. ASSESSMENT: STEMI, s/p PCI to LAD Ischemic cardiomyopathy Hypertension PLAN: Continue dual antiplatelet therapy with aspirin and Plavix Continue Lipitor, carvedilol, losartan, and Aldactone Patient is stable for discharge home this afternoon. He is to follow up outpatient with Dr. Avalos Nurse practitioner note has been reviewed by physician. Signing provider agrees with the documented findings, assessment, and plan of care. Objective - Vital Signs Vital signs: Vital Signs Temp 97.8 F 04/01/21 08:38 Pulse 68 04/01/21 08:38 Resp 18 04/01/21 08:38 BP 142/90 04/01/21 08:38 Pulse Ox 93 L 04/01/21 08:38 Intake & Output 03/31/21 04/01/21 04/01/21 18:59 06:59 18:59 Intake Total 600 120 118 Balance 600 120 118 Weight 184.1 kg 183.7 kg Intake: Oral 600 120 118 Other: Voiding Method Toilet Toilet Toilet Urinal Urinal Urinal # Voids 1 - Labs CBC & Chem 7: 03/30/21 05:33 04/01/21 05:25 Labs: Abnormal Lab Results - Last 24 Hours (Table) 03/31/21 03/31/21 03/31/21 Range/Units 07:02 09:54 09:54 Sodium 132 L (137-145) mmol/L Glucose 111 H (74-99) mg/dL Calcium 8.3 L (8.4-10.2) mg/dL Troponin I 7.410 H* (0.000-0.034) ng/mL HDL Cholesterol 33.60 L (40.00-60.00) mg/dL 04/01/21 Range/Units 05:25 Sodium 134 L (137-145) mmol/L Glucose (74-99) mg/dL Calcium 8.2 L (8.4-10.2) mg/dL Troponin I (0.000-0.034) ng/mL HDL Cholesterol (40.00-60.00) mg/dL
--- NOTE | 2021-04-01 10:48 | P.DS ---
Providers Date of admission: 03/29/21 20:27 Expected date of discharge: 04/01/21 Attending physician: Sari Gavin Consults: 03/29/21 20:17 Consult Physician Stat Consulting Provider: Alexandra Villalta Consult Reason/Comments: STEMI ACTIVATION COMPLETE Do you want consulting provider notified?: Yes 03/29/21 22:08 Consult Physician Routine Consulting Provider: Alexandra Villalta Consult Reason/Comments: Post Interventional patient Do you want consulting provider notified?: Already Contacted 03/30/21 05:18 Consult Physician Routine Consulting Provider: Indra Duke Consult Reason/Comments: Weekend coverage Do you want consulting provider notified?: Already Contacted Primary care physician: Stated None Hospital Course: 70 years male patient of Dr. Mcmahon with past medical history of hypertension, morbid obesity comes in with acute onset of chest discomfort when he came inside his house. Patient states pain was central in location and n onradiating associated with excessive sweating and nausea. He called EMS within 15 minutes and was brought here. In the ER patient was noted to have diffuse ST elevation in the precordial lead with Q waves. STEMI alert was made and patient was taken to cardiac cath and stenting of the mid LAD with drug-eluting stent was done with an 81 minutes. Patient was noted to have an thrombus burden and filling defect in the LAD. Echocardiogram obtained this morning suggestive of mild concentric left ventricle hypertrophy and EF of 35-0.40% apical anterior, lateral, inferior, septum left ventricle wall motion hypokinetic. Vitals are reviewed patient is afebrile pulse 64 respiratory rate 16 blood pressure 155/86 oxygenating 94% on room air. Labs are reviewed patient has a WBC count of 10 sodium 133 potassium 4.2 BUN 18 creatinine 0.97. Troponin negative second troponin 0.386. Twice a day, Plavix 75 mg by mouth daily, losartan 50 mg by mouth daily and spironolactone . Patient will be placed on aspirin and brillanta for anticoagulation. 03/31 patient examined at bedside is comfortable denies any chest pain shortness of breath dizziness or lightheadedness. Vitals evaluated, patient is afebrile pulse 7061 respiratory rate 18 blood pressure 127/74. Labs are reviewed patient's has a sodium 132. He had a peak troponin 17.4 which improved to 7.4 LDL 90. Continue to remain on aspirin and Plavix. Continue telemetry to look for arrhythmias. Cardiology follow-up as outpatient. Would need cardiac rehab on discharge. 04/01: Patient can denies any complaints of chest pain, no palpitations, lightheadedness or dizziness. No shortness of breath. Patient has been seen by cardiology and cleared for discharge this morning. Patient son is at bedside and patient will be discharged home today in stable condition. Discharge diagnoses: STEMI status post drug-eluting stenting of mid LAD on 03/29 Hypertension Ischemic cardiomyopathy History of prostate cancer DISCHARGE PLAN Home Greater than 35 minutes was utilized and coordinating patient's discharge. Impression and plan of care have been directed as dictated by the signing physician. Jenny Vergara nurse practitioner acting as scribe for signing physician. Patient Condition at Discharge: Good Plan - Discharge Summary Discharge Rx Participant: Yes New Discharge Prescriptions: New Spironolactone [Aldactone] 50 mg PO DAILY #180 tab Aspirin 81 mg PO DAILY #90 tab carvediloL [Coreg] 3.125 mg PO BID-W/MEALS #180 tab Losartan [Cozaar] 50 mg PO DAILY@1200 #90 tab Nitroglycerin Sl Tabs [Nitrostat] 0.4 mg SUBLINGUAL Q5M PRN #100 tab PRN Reason: Chest Pain Atorvastatin [Lipitor] 80 mg PO DAILY #90 tab Clopidogrel [Plavix] 75 mg PO DAILY #90 tab Discontinued Losartan/Hydrochlorothiazide [Losartan-Hctz 100-25 mg Tab] 1 tab PO DAILY Discharge Medication List Aspirin 81 mg PO DAILY #90 tab 04/01/21 [Rx] Atorvastatin [Lipitor] 80 mg PO DAILY #90 tab 04/01/21 [Rx] Clopidogrel [Plavix] 75 mg PO DAILY #90 tab 04/01/21 [Rx] Losartan [Cozaar] 50 mg PO DAILY@1200 #90 tab 04/01/21 [Rx] Nitroglycerin Sl Tabs [Nitrostat] 0.4 mg SUBLINGUAL Q5M PRN #100 tab 04/01/21 [Rx] Spironolactone [Aldactone] 50 mg PO DAILY #180 tab 04/01/21 [Rx] carvediloL [Coreg] 3.125 mg PO BID-W/MEALS #180 tab 04/01/21 [Rx] Follow up Appointment(s)/Referral(s): Giovany Avalos MD [STAFF PHYSICIAN] - 1 Week (The office will call you with an appointment) Fred Mcmahon MD [REFERRING] - 10 Days (Please call to make an appointment) Patient Instructions/Handouts: Heart Attack (IP) Discharge Disposition: HOME SELF-CARE
[2021-04-01 12:29] VITALS: BP 157/90; PULSE 70; TEMP 98
[2021-04-01] MEDS: LOSARTAN 50 MG TAB PO SCH (12:30)
== END 2021-04-01 13:39 | disposition home or self-care (01) | DRG 247 ==
LOC: EC 20:10 → 2SICU 20:27 → 3SCARD 03-30 12:41
PROVIDERS: ADMIT Family Medicine; ATTEND Family Medicine
PROC: B2111ZZ Fluoroscopy of Multiple Coronary Arteries using Low Osmolar Contrast (ICD-10-PCS; 2021-03-29)
PROC: 027034Z Dilation of Coronary Artery, One Artery with Drug-eluting Intraluminal Device, Percutaneous Approach (ICD-10-PCS; principal; 2021-03-29 20:43)
PROC: 4A023N7 Measurement of Cardiac Sampling and Pressure, Left Heart, Percutaneous Approach (ICD-10-PCS; 2021-03-29 20:43)
DX: I21.09 ST elevation (STEMI) myocardial infarction involving other coronary artery of anterior wall (principal); Z68.43 Body mass index [BMI] 50.0-59.9, adult; I25.10 Atherosclerotic heart disease of native coronary artery without angina pectoris; I10 Essential (primary) hypertension; I25.2 Old myocardial infarction; I25.5 Ischemic cardiomyopathy; E66.01 Morbid (severe) obesity due to excess calories; I48.91 Unspecified atrial fibrillation; I49.3 Ventricular premature depolarization; Z79.899 Other long term (current) drug therapy; Z85.46 Personal history of malignant neoplasm of prostate; Z88.1 Allergy status to other antibiotic agents
CPT/HCPCS: 36415; 71045; 80048; 80053; 80061; 83735; 84484; 85025; 85610; 85730; 93005; 93306; 93458; 99285